=== PATIENT | female | born 1960 | race Caucasian/White ===

== ENCOUNTER 2019-09-15 09:02 | Emergency (ER) | payer BC, SELFPAY ==
[2019-09-15 09:05] VITALS: BP 118/70; PULSE 77; TEMP 36.7; O2SAT 99; BMI 24.9
--- NOTE | 2019-09-15 09:11 | ED_ITS ---
Entered by Susana Johnson, acting as scribe for Gal Mcdowell DO HPI - Abdominal Pain General: Chief Complaint: Abdominal Pain Stated Complaint: ABD PAIN Time Seen by Provider: 09/15/19 09:11 Source: patient and family Mode of arrival: ambulatory Limitations: no limitations History of Present Illness: HPI narrative: 59 yo female presents with abdomen pain. pt states this started 1 week ago. pt states she was seen at pcp clinic for the same symptoms and they found nothing wrong. pt has a hx of UTI's. pt states she has had diarrhea. pt's last bm was yesterday. pt denies any other symptoms at this time. MD elicited complaint: abdominal pain Onset (ago): week(s) (1 week ago) Location: RLQ and LLQ Severity: moderate Quality: cramping and fullness Exacerbating factors: other (diarrhea ) Relieving factors: nothing Associated Symptoms: Reports diarrhea; Denies chills, fever(s), hematochezia, hematuria and syncope Review of Systems General: Reports: 10 or more systems reviewed and unremarkable except in HPI and below Const: Denies: fever or chills Eyes: Denies: change in vision, blurry vision, blind spots or photophobia ENMT: Denies: throat pain, swelling of lips/tongue, oral sores/lesions, bad breath, ear pain, ear discharge, nasal discharge or nasal congestion Card: Denies: palpitations, syncope or shortness of breath when lying down Resp: Denies: change in phlegm color GI: Reports: abdominal pain and diarrhea; Denies: painful bowel movements or blood in stool : Denies: urinary dribbling, urinary incontinence, blood in urine or vaginal bleeding Musc: Denies: joint warmth Skin/Breast: Denies: rash or itching Neuro: Denies: headache or numbness in extremities Psych: Denies: depression Endo: Denies: excessive urination or excessive thirst PFSH ED PFSH: Social History Smoking and tobacco status: current every day smoker Physical Exam Const: COMMON NORMALS: no apparent distress, average body habitus, oriented x3, no limitations, healthy appearing, alert and well nourished HENMT: COMMON NORMALS: normocephalic, head/scalp atraumatic, hearing grossly normal bilaterally, external ears normal, EAC's normal, TM's normal bilaterally, external nose normal, nasal mucous membranes and turbinates normal, moist oral mucous membranes, oropharynx normal, dentition normal and gingiva normal HEAD & SCALP: normocephalic and atraumatic NOSE: external nose normal and nasal mucous membranes and turbinates normal EXTERNAL EAR: Yes external ears normal EXTERNAL AUDITORY CANAL: EAC's normal TYMPANIC MEMBRANE: TM's normal bilaterally Eye: COMMON NORMALS: PERRL, EOMs intact bilaterally, conjunctivae normal, no scleral icterus, no papilledema, normal visual hodge by confrontation and fundi normal bilaterally CONJUNCTIVA: Yes conjunctivae normal PUPIL: Yes PERRL DIRECT OPHTHALMOSCOPY: Yes no papilledema and Yes fundi normal bilaterally Neck/C-Spine: COMMON NORMALS: full ROM, no lymphadenopathy, supple, no meningeal signs, no JVD, thyroid normal and no carotid bruits THYROID: thyroid normal Chest: COMMONS NORMALS: inspection of chest normal and palpation of chest normal Resp: COMMON NORMALS: normal respiratory effort, no retractions, no use of accessory muscles, clear to auscultation bilaterally and percussion normal AUSCULTATION: clear to auscultation bilaterally PERCUSSION: percussion normal Cardio: COMMON NORMALS: no JVD, regular rate, regular rhythm, S1 normal heart sound, S2 normal heart sound, no gallops, no clicks, no murmurs, no rub and peripheral pulses 2+ throughout RATE: regular rate RHYTHM: regular rhythm HEART SOUNDS: S1 normal and S2 normal PERIPHERAL PULSES: pulses 2+ throughout : COMMON NORMALS: Yes no CVA tenderness and Yes external appearance normal BLADDER/KIDNEY EXAM: Yes no CVA tenderness Back/Pelvis: COMMON NORMALS: no CVA tenderness, thoracic and lumbar spine normal to inspection, no thoracic nor lumbar tenderness, thoraco-lumbar ROM normal and straight leg raise negative bilaterally Extremity: COMMON NORMALS: normal to inspection, full ROM, normal capillary refill, no joint enlargement, no clubbing, cyanosis or edema, no calf tenderness and no pedal edema Neuro: COMMON NORMALS: oriented x3 SENSORIUM/ORIENTATION: Yes alert MENINGEAL SIGNS: Yes no meningeal signs Skin: COMMON NORMALS: no rashes or lesions noted, no wounds, skin turgor normal, no jaundice, no petechiae and no mottling GENERAL SKIN EXAM: no rashes or lesions noted and turgor normal Course Vital Signs: Vital signs: Vital Signs Temperature 98.0 F 09/15/19 09:05 Pulse Rate 77 09/15/19 09:05 Blood Pressure 118/70 09/15/19 09:05 Pulse Oximetry 99 09/15/19 09:05 MDM - Abdominal Pain Lab Data: Labs: Lab Results 09/15/19 09/15/19 09/15/19 Range/Units 09:27 09:38 09:38 WBC 4.5 (4.0-10.0) 10^3/ uL RBC 4.47 (4.1-5.3) 10^6/u L Hgb 12.8 (11.5-15.3) g/dL Hct 41.5 (37.0-47.0) % MCV 92.8 (81-99) fL MCH 28.6 (28.0-34.0) pg MCHC 30.8 (30.0-36.0) g/dL RDW 12.1 (12.1-15.1) % Plt Count 196 (130-400) 10^3/c mm MPV 11.7 H (7.4-10.4) fL Neut % (Auto) 54.4 % Lymph % (Auto) 36.2 % [place] % (Auto) 7.7 % Eos % (Auto) 1.1 % Baso % (Auto) 0.4 % Neut # (Auto) 2.5 (1.8-7.7) 10^3/u L Lymph # (Auto) 1.6 (0.8-4.8) 10^3/u L [place] # (Auto) 0.4 (0.2-0.9) 10^3/u L Eos # (Auto) 0.1 (0.0-0.8) 10^3/u L Baso # (Auto) 0.0 (0.0-0.1) 10^3/u L Nucleated RBC % (a uto) 0 % Nucleated RBCs # 0.0 /100WBC Sodium 139 (136-145) mmol/L Potassium 3.8 (3.5-5.1) mmol/L Chloride 100 (98-107) mmol/L Carbon Dioxide 26 (22-29) mmol/L Anion Gap 16.8 (5-19) BUN 18 (6-20) mg/dL Creatinine 0.9 (0.5-0.9) mg/dL GFR Calculation 64.1 L (90-130) mL/min Glucose 105 (65-115) mg/dL Lactate (0.5-2.2) mmol/L Calcium 9.9 (8.5-10.5) mg/dL Total Bilirubin 0.3 (0.15-1.2) mg/dL AST 21 (0-32) U/L ALT 16 (0-33) U/L Alkaline Phosphata se 114 H (35-105) IU/L Total Protein 7.2 (6.6-8.7) g/dL Albumin 4.3 (3.5-5.2) g/dL Globulin 2.9 (1.3-4.6) g/dL Lipase 32 (13-60) U/L Urine Color Yellow (Yellow) Urine Appearance Clear (CLEAR) Urine pH 6.0 (5-7) Ur Specific Gravit y 1.020 (1.005-1.030) Urine Protein Neg (Negative) Urine Glucose (UA) Norm (Normal) Urine Ketones Negative (Negative) Urine Blood Neg (Negative) Urine Nitrate Negative (Negative) Urine Bilirubin Neg (NEGATIVE) Urine Urobilinogen 1 H (Negative) mg/dL Ur Leukocyte Senait ase Trace H (Negative) Urine RBC 5-10 H (0-2) /hpf Urine WBC 10-15 H (0-5) /hpf Ur Squamous Epith Cells 0-4 H (0-5) Urine Bacteria 1+ H (NONE) Urine Mucus 1+ 09/15/19 Range/Units 09:38 WBC (4.0-10.0) 10^3/ uL RBC (4.1-5.3) 10^6/u L Hgb (11.5-15.3) g/dL Hct (37.0-47.0) % MCV (81-99) fL MCH (28.0-34.0) pg MCHC (30.0-36.0) g/dL RDW (12.1-15.1) % Plt Count (130-400) 10^3/c mm MPV (7.4-10.4) fL Neut % (Auto) % Lymph % (Auto) % [place] % (Auto) % Eos % (Auto) % Baso % (Auto) % Neut # (Auto) (1.8-7.7) 10^3/u L Lymph # (Auto) (0.8-4.8) 10^3/u L [place] # (Auto) (0.2-0.9) 10^3/u L Eos # (Auto) (0.0-0.8) 10^3/u L Baso # (Auto) (0.0-0.1) 10^3/u L Nucleated RBC % (a uto) % Nucleated RBCs # /100WBC Sodium (136-145) mmol/L Potassium (3.5-5.1) mmol/L Chloride (98-107) mmol/L Carbon Dioxide (22-29) mmol/L Anion Gap (5-19) BUN (6-20) mg/dL Creatinine (0.5-0.9) mg/dL GFR Calculation (90-130) mL/min Glucose (65-115) mg/dL Lactate 1.8 (0.5-2.2) mmol/L Calcium (8.5-10.5) mg/dL Total Bilirubin (0.15-1.2) mg/dL AST (0-32) U/L ALT (0-33) U/L Alkaline Phosphata se (35-105) IU/L Total Protein (6.6-8.7) g/dL Albumin (3.5-5.2) g/dL Globulin (1.3-4.6) g/dL Lipase (13-60) U/L Urine Color (Yellow) Urine Appearance (CLEAR) Urine pH (5-7) Ur Specific Gravit y (1.005-1.030) Urine Protein (Negative) Urine Glucose (UA) (Normal) Urine Ketones (Negative) Urine Blood (Negative) Urine Nitrate (Negative) Urine Bilirubin (NEGATIVE) Urine Urobilinogen (Negative) mg/dL Ur Leukocyte Senait ase (Negative) Urine RBC (0-2) /hpf Urine WBC (0-5) /hpf Ur Squamous Epith Cells (0-5) Urine Bacteria (NONE) Urine Mucus Discharge Plan Discharge Patient Disposition: Home, Self-Care Clinical Impression: Abdominal pain Qualifiers: Abdominal location: generalized Qualified Code(s): R10.84 - Generalized abdominal pain Constipation Qualifiers: Constipation type: unspecified constipation type Qualified Code(s): K59.00 - Constipation, unspecified Condition: Stable Prescriptions: No Action omeprazole 20 mg capsule,delayed release(DR/EC) 20 mg PO DAILY RF: 0 Discharge Orders: Discharge Order (Routine); Ordered 09/15/19 Ordered By: Gal Mcdowell Referrals: Regina Ruiz, LOCAL AREA NETWORK ADMINISTRATOR-C [Family Provider] - Patient Instructions: Cholecystitis (ED), Abdominal Pain (ED) Coding Level of Care Code ED Patrol Driver for Chg Fwd Exam Comprehensive The documentation recorded by the Alex ortiz Bridget Annette, accurately reflects the service I personally performed and the decisions made by July lanier Donald P, DO Sep 15, 2019 09:02
--- NOTE | 2019-09-15 09:22 | CTR_ITS ---
PROCEDURE INFORMATION: Exam: CT Abdomen And Pelvis With Contrast Exam date and time: 09/15/2019 10:08 AM Age: 59 years old Clinical indication: Abdominal pain; Generalized; Prior surgery; Surgery date: 6+ months; Surgery type: Right ovary surgery; Additional info: Abd pain TECHNIQUE: Imaging protocol: Computed tomography of the abdomen and pelvis with intravenous contrast. Total DLP: 605.6 mGy-cm Radiation optimization: All CT scans at this facility use at least one of these dose optimization techniques: automated exposure control; mA and/or kV adjustment per patient size (includes targeted exams where dose is matched to clinical indication); or iterative reconstruction. Contrast material: OMNIPAQUE; Contrast volume: 95 ml; Contrast route: IV; COMPARISON: US Renal Kidney Structu* [id number] 12/10/2017 9:30 AM FINDINGS: Mediastinum: Small hiatal hernia. Liver: 2 cm cyst lateral segment left lobe of the liver Gallbladder and bile ducts: Normal. No calcified stones. No ductal dilation. Pancreas: Normal. No ductal dilation. Spleen: Normal. No splenomegaly. Adrenals: Normal. No mass. Kidneys and ureters: Normal. No hydronephrosis. Stomach and bowel: Large amount of stool throughout the large bowel. severe diverticulosis without evidence of diverticulitis. Appendix: The appendix is normal. Intraperitoneal space: No free fluid within the pelvis or within the dependent portions of the peritoneum. Vasculature: Calcification of the aorta. Lymph nodes: Unremarkable. No enlarged lymph nodes. Bladder: Unremarkable as visualized. Reproductive: Prior hysterectomy. Bones/joints: The osseous structures are unremarkable other than mild degenerative disk disease.. No fracture. Soft tissues: Unremarkable. Other findings: No acute intra-abdominal process. No inflammatory process. No obstruction. CT/CT abdomen pelvis w con* [id number] IMPRESSION: 1. No acute intra-abdominal process. No inflammatory process. No obstruction. 2. No free fluid within the pelvis or within the dependent portions of the peritoneum. 3. Large amount of stool throughout the large bowel. 4. Severe diverticulosis without evidence of diverticulitis. 5. The appendix is normal. Radiation Dose CTDIVOL = (mGy): DLP = 605.6 (mGy-cm)
[2019-09-15 09:44] LABS: Basophils % 0.4 %; Eosinophils # 0.1 10^3/uL (0.0-0.8); Eosinophils % 1.1 %; Hematocrit 41.5 % (37.0-47.0); Hemoglobin 12.8 g/dL (11.5-15.3); Lymphocytes # 1.6 10^3/uL (0.8-4.8); Lymphocytes % 36.2 %; Mean Corpuscular HGB Conc 30.8 g/dL (30.0-36.0); Mean Corpuscular Hemoglobin 28.6 pg (28.0-34.0); Mean Corpuscular Volume 92.8 fL (81-99); Mean Platelet Volume 11.7 fL (7.4-10.4); Monocytes # 0.4 10^3/uL (0.2-0.9); Monocytes % 7.7 %; Neutrophils # 2.5 10^3/uL (1.8-7.7); Neutrophils % 54.4 %; Nucleated Red Blood Cells % 0 %; Platelet Count 196 10^3/cmm (130-400); Red Blood Count 4.47 10^6/uL (4.1-5.3); Red Cell Distribution Width 12.1 % (12.1-15.1); White Blood Count 4.5 10^3/uL (4.0-10.0)
[2019-09-15 09:45] LABS: Add Urine Microscopic? YES; Bilirubin Urine Neg (NEGATIVE); Blood Urine Neg (Negative); Glucose Urine UA Norm (Normal); Ketones Urine Negative (Negative); Leukocyte Esterase Urine Trace (Negative); Nitrate Urine Negative (Negative); Protein Urine Neg (Negative); Urine Appearance Clear (CLEAR); Urine Color Yellow (Yellow); Urobilinogen Urine 1 mg/dL (Negative)
[2019-09-15 09:51] LABS: Add Urine Culture? Yes; Bacteria Urine 1+; Mucus Urine 1+; Squamous Epithelial Cell Urine 0-4 (0-5)
[2019-09-15] MEDS: sodium chloride 0.9% 1,000 ML 999 ML IV (09:56)
[2019-09-15 09:58] LABS: Alanine Aminotransferase 16 U/L (0-33); Albumin Level 4.3 g/dL (3.5-5.2); Alkaline Phosphatase 114 IU/L (35-105); Anion Gap 16.8 (5-19); Aspartate Amino Transferase 21 U/L (0-32); Blood Urea Nitrogen 18 mg/dL (6-20); Calcium 9.9 mg/dL (8.5-10.5); Carbon Dioxide 26 mmol/L (22-29); Chloride 100 mmol/L (98-107); Globulin 2.9 g/dL (1.3-4.6); Glomerular Filtration Rate 64.1 mL/min (90-130); Glucose 105 mg/dL (65-115); Lipase 32 U/L (13-60); Potassium 3.8 mmol/L (3.5-5.1); Sodium 139 mmol/L (136-145); Total Bilirubin 0.3 mg/dL (0.15-1.2); Total Protein 7.2 g/dL (6.6-8.7)
[2019-09-15 09:59] LABS: Lactate (Lactic Acid level) 1.8 mmol/L (0.5-2.2)
[2019-09-15] MEDS: iohexol 300 mg/mL 100 mL Btl IV (10:37)
[2019-09-15 12:24] VITALS: BP 116/79; PULSE 78; RESP 16; O2SAT 97
== END 2019-09-15 12:25 | disposition home or self-care (01) ==
PROVIDERS: Emergency Provider Family Medicine; Family Provider Nurse Practitioner
DX: R10.9 Unspecified abdominal pain (principal); K59.00 Constipation, unspecified; F17.200 Nicotine dependence, unspecified, uncomplicated
CPT/HCPCS: 36415; 74177; 80053; 81001; 83605; 83690; 85025; 87086; 96360; 99282; 99283; J7030; Q9967

== ENCOUNTER → 2020-08-04 10:59 | Outpatient (BNVA) | payer BC, SELFPAY | PROVIDERS: PCP Nurse Practitioner Family; Visit Provider Surgery | DX: Z20.822 Contact with and (suspected) exposure to COVID-19 (principal); Z11.52 Encounter for screening for COVID-19 | CPT/HCPCS: 87635 ==

== ENCOUNTER 2020-08-09 06:16 | Day surgery (SDC) | payer BC, SELFPAY ==
[2020-08-09] MEDS: sodium chloride 0.9% 1,000 ML 30 ML IV (06:45)
[2020-08-09 06:57] VITALS: BP 118/100; PULSE 86; RESP 18; TEMP 36.3; O2SAT 99
--- NOTE | 2020-08-09 07:40 | ANES.PREANE2 ---
Pre-Anesthetic Assessment Pre-Anesthetic Assessment: Height/Weight: Height 1.63 m Weight 58.967 kg Temp Pulse Resp BP Pulse Ox 97.3 F L 86 18 118/100 99 08/09/20 06:57 08/09/20 06:57 08/09/20 06:57 08/09/20 06:57 08/09/20 06:57 Preop Diagnosis: Rectal pain and hemorrhoids rectal pain and hemorrhoids Proposed Procedure: Operation Date: 08/09/20 07:55 Proposed Procedures p Colonoscopy [id number] Z12.11 K64.9(Not Applicable) - Bharat Sanchez MD s Exam Under Anesthesia(Not Applicable) - Bharat Sanchez MD s Hemorroidectomy(Not Applicable) - Bharat Sanchez MD Was Beta Wiley taken within 24 hours: N/A Last intake: Intake Last Liquid Date 08/08/20 Last Liquid Time 18:00 Last Solid Date 08/07/20 Social: Social History: No alcohol and No tobacco Exam: Pre-Anes Outpt Exam: alert, oriented x 3, clear to auscultation bilaterally and regular rate & rhythm Airway: Submandibular: WNL Cervical ROM: WNL MP: 2 Dentition: False History/ROS: No significant history except as noted Anesthetic Plan: ASA status: 1 Risk of > 500 ml blood loss (7ml/kg in children): No PFSH Anesthesia PFSH: Medical History Hemorrhoids Surgical History History of right oophorectomy Family History Denies family history of Diabetes Anesthesia complication Bleeding disorder Cancer Hypertension Social History Smoking and tobacco status: former smoker Alcohol intake: never Marital status: Bruna/Restorationism: None Financial difficulty paying for basics: Very Hard Data Anesthesia Cardiac Studies: No Data to Display
--- NOTE | 2020-08-09 08:49 | W.PM.OPSUD ---
Surgery/Procedure H&P Update DATE OF PROCEDURE: August 09, 2020 DATE H&P PERFORMED: 08/01/20 H&P UPDATE INFORMATION: I have reviewed H&P completed within last 30 days, I have examined patient prior to procedure and No changes to prior documentation PREOP DIAGNOSIS: Rectal pain and hemorrhoids rectal pain and hemorrhoids PRIMARY INDICATION FOR PROCEDURE: The same PLANNED PROCEDURE: Operation Date: 08/09/20 07:55 Proposed Procedures p Colonoscopy [id number] Z12.11 K64.9(Not Applicable) - Bharat Sanchez MD s Exam Under Anesthesia(Not Applicable) - Bharat Sanchez MD s Hemorroidectomy(Not Applicable) - Bharat Sanchez MD
--- NOTE | 2020-08-09 09:39 | PM.OP ---
Operative Report Date of procedure: August 09, 2020 Pre-op Diagnosis: Rectal pain and hemorrhoids rectal pain and hemorrhoids Post-op diagnosis: other (No evidence of internal or external hemorrhoids and presence of diverticulosis) Post-op Findings: Transverse colon,descending and sigmoid colon diverticulosis Procedure Done: Colonoscopy Specimens removed/disposition: None Surgeon: Bharat Sanchez Guide Visitor: certified composites techniciancarlos Thomas Circulating nurse Marleny Lopez Anesthesia: MAC (room service bellhop Smart) Estimated blood loss (mL): 0 Condition: stable Disposition: same day Brief History: This is a pleasant 59 years old female patient never had a colon copy before and complains of rectal pain as she was told at some point that she have hemorrhoids that needed to have surgery for. Plan of care; After thorough history and physical examination and reviewing the chart, plan to perform a colonoscopy in the operating room with examination under anesthesia and possible hemorrhoidectomy. I discussed with the patient in details the risks,benefits,alternatives and indications.The risk of aspiration, bleeding, soft tissue injury, perforation of the colon and other potential concomitant complications were explained to the patient in details.The patient understood this well and did agree to proceed. Rationale was carefully and clearly discussed with the patient.Appropriate informed consent have been reviewed and signed All questions have been answered and all concerns have been addressed to patient's satisfaction. Verbal and written Instructions were given to the patient for colonoscopy prep. Procedure: Patient was identified in the holding area, was taken to the OR placed first in supine position,time-out was done verifying the patient's name, date of , and procedure, all were in agreement. IV propofol was infused by the anesthesia provider, patient was then placed in left lateral position. Perianal examination showed normal findings,Following that a digital rectal examination was done showed no masses or blood or fibrosis, the colonoscope was then introduced via the anus under direct visualization, all the way to the cecum, prep of the colon was appropriate, there were no polyps identified or masses yet diverticular disease distal transverse,descending and sigmoid colon. The scope was then retrieved back ,time for withdrawal exceeded 7 minutes, gas was deflated on the way out. The Anal segment was reexamined and showed no evidence of hemorrhoids. Patient was repositioned to supine position,patient tolerated the procedure well Patient was taken to the recovery area in stable condition I was present for the whole entire procedure Recommendation to repeat colonoscopy in 10 years for screening purposes.
[2020-08-09 09:42] VITALS: BP 130/75; PULSE 77; RESP 16; TEMP 36.3; O2SAT 100
[2020-08-09 10:01] VITALS: BP 126/80; PULSE 74; RESP 18; O2SAT 100
--- NOTE | 2020-08-09 13:35 | ANE.PACU2 ---
Inpatient post-anesthesia follow up: Airway intact: Yes Vital signs: Temperature 97.3 F Pulse Rate 74 Respiratory Rate 18 Blood Pressure 126/80 Pulse Oximetry 100 Oxygen Delivery Me thod Room Air Oxygen Flow Rate Fraction of Inspir ed Oxygen Hydration adequate: Yes Nausea and vomiting: No Pain level: 1 Mental status: Baseline
== END 2020-08-09 10:20 | disposition home or self-care (01) ==
PROVIDERS: PCP Nurse Practitioner Family; Visit Provider Surgery
PROC: 0DJD8ZZ Inspection of Lower Intestinal Tract, Via Natural or Artificial Opening Endoscopic (ICD-10-PCS; CPT 45378; principal; 2020-08-09 07:55)
DX: K62.89 Other specified diseases of anus and rectum (principal); K57.30 Diverticulosis of large intestine without perforation or abscess without bleeding; Z87.891 Personal history of nicotine dependence
CPT/HCPCS: 12345; 45378; J2704; J7030

== ENCOUNTER 2022-07-19 09:18 | Outpatient (CLI) | payer OTHER, SELFPAY ==
--- NOTE | 2022-07-19 11:20 | MM_ITS ---
WS: [id number] Bilateral screening 3D tomosynthesis digital mammogram, 07/19/2022 Clinical Data: SCREENING Comparison: None. Findings: The breast parenchymal pattern shows fibroglandular tissue. No spiculated masses or clustered calcifi cations are seen. There are no secondary signs of carcinoma. MM/[place] [id number] Impression: 1. Negative bilateral mammogram unchanged. 2. Recommend annual screening mammograms. BIRADS: 1-Negative FOLLOW UP: 1 Year Follow-up The CAD tool checker was used.
== END 2022-07-19 09:19 | disposition home or self-care (01) ==
PROVIDERS: PCP Nurse Practitioner Family; Visit Provider Nurse Practitioner Family
DX: Z12.31 Encounter for screening mammogram for malignant neoplasm of breast (principal)
CPT/HCPCS: 77063; 77067

== ENCOUNTER 2022-11-02 21:44 | Emergency (ER) | payer SELFPAY ==
[2022-11-02 22:02] VITALS: BP 122/79; PULSE 80; RESP 16; TEMP 36.6; O2SAT 97
--- NOTE | 2022-11-02 22:14 | XRR_ITS ---
PROCEDURE INFORMATION: Exam: XR Left Clavicle, Complete Exam date and time: 11/02/2022 10:23 PM Age: 62 years old Clinical indication: Pain; Other: Clavicle; Additional info: Fall TECHNIQUE: Imaging protocol: Radiologic exam of the left clavicle. Complete exam. Views: Any number of views. COMPARISON: No relevant prior studies available. FINDINGS: Bones/joints: Mild arthritis left AC joint. No acute fracture or dislocation. Anatomic alignment. Soft tissues: Normal. XR/[place] [id number] IMPRESSION: Degenerative changes. No acute injury.
[2022-11-03 00:21] VITALS: BP 129/73; PULSE 69; RESP 16; O2SAT 98
--- NOTE | 2022-11-03 00:33 | XRR_ITS ---
PROCEDURE INFORMATION: Exam: XR Left Humerus Exam date and time: 11/03/2022 12:42 AM Age: 62 years old Clinical indication: Injury or trauma; Fall; Blunt trauma (contusions or hematomas); Arm, upper; Left; Additional info: Fall, pain, clavicle XR neg but does not show humoral neck and lower TECHNIQUE: Imaging protocol: Radiologic exam of the left humerus. Views: 2 or more views. COMPARISON: CR (CHEST, ) 11/02/2022 10:23 PM FINDINGS: Bones/joints: Normal. Soft tissues: Normal. XR/[place] [id number] IMPRESSION: No acute findings.
--- NOTE | 2022-11-03 00:37 | W.ED.FALL ---
HPI - Fall General: Chief Complaint: Fall Stated Complaint: fell, collar bone and left arm injury Time Seen by Provider: 11/03/22 00:12 Source: patient Mode of arrival: ambulatory Limitations: no limitations History of Present Illness: Patient presents emergency department today accompanied by significant other for evaluation treatment of left shoulder injury. Patient states that Saturday evening she had been sitting down at her desk. When she got up her leg was asleep causing her to fall forward. Patient states she fell onto the carpeted floor on the side of her left shoulder. She thought at first it was just a sprain so she was taking Tylenol but, has not noticed improvement in her left shoulder pain or improvement in her range of motion. Patient complains of pain across her left clavicle but also to the proximal portion of her left upper arm. Patient has very little range of motion but denies any tingling or numbness into her hand. She has some tightness of her neck but denies any pain with range of motion. She did not hit her head when she fell. Review of Systems General: Reports: 10 or more systems reviewed and unremarkable except in HPI and below PFSH ED PFSH: Medical History Hemorrhoids Surgical History History of right oophorectomy Family History Denies family history of Diabetes Anesthesia complication Bleeding disorder Cancer Hypertension Social History Smoking and tobacco status: former smoker Alcohol intake: never Substance/Drug Use: never Marital status: Bruna/Mormonism: None Financial difficulty paying for basics: Very Hard Physical Exam Const: COMMON NORMALS: no acute distress, patient oriented x3 and alert HENMT: COMMON NORMALS: normocephalic, atraumatic and hearing grossly normal bilaterally HEAD & SCALP: normocephalic and atraumatic Eye: COMMON NORMALS: Equal, round and reactive pupils present, EOMs intact bilaterally and conjunctivae normal CONJUNCTIVA: Yes conjunctivae normal PUPIL: Yes Equal, round and reactive pupils present Neck/C-Spine: COMMON NORMALS: full ROM and no JVD Lymph: LYMPHATIC: no lymphadenopathy noted Resp: COMMON NORMALS: normal respiratory effort, No retractions and No use of accessory muscles Cardio: COMMON NORMALS: no JVD and regular rate RATE: regular rate Extremity: NARRATIVE EXTREMITY EXAM: Patient is nontender palpation to her left elbow. She has full flexion extension of the elbow without pain at the elbow but some discomfort with flexion radiating up into her upper arm. Patient is tender starting at the mid clavicle extending laterally. Patient has some anterior left shoulder discomfort but, pain is primarily felt in the back and along the lateral side. Patient has approximately 10 to 20 degrees of left shoulder abduction and almost no ability to try and bring her left arm behind her back. She is able to bring her left arm forward approximately 40 degrees. Neuro: COMMON NORMALS: patient oriented x3 SENSORIUM/ORIENTATION: Yes alert Psych: COMMON NORMALS: mental status grossly normal, Normal thought process present, cooperative and normal affect THOUGHT PROCESS: Normal thought process present Skin: COMMON NORMALS: no rashes or lesions noted and turgor normal GENERAL SKIN EXAM: no rashes or lesions noted and turgor normal Course Vital Signs: Vital signs: Vital Signs Temperature 97.8 F 11/02/22 22:02 Pulse Rate 69 11/03/22 00:21 Respiratory Rate 16 11/03/22 00:21 Blood Pressure 129/73 11/03/22 00:21 Pulse Oximetry 98 11/03/22 00:21 Oxygen Delivery Me thod Room Air 11/03/22 00:21 MDM - Fall Medical Decision Making Patient presented to the emergency department today for evaluation treatment of pain to her left clavicle and left upper arm after a fall. X-rays were read as negative however, patient has significant decreased range of motion on her physical examination consistent with concerns for rotator cuff injury. Discussed follow-up with orthopedics for second opinion and second evaluation as she may require some physical therapy or further intervention. We discussed use of a sling and patient states she has 1 at home already. Patient has a history of stomach ulcers and avoids NSAIDs so, patient will use Tylenol, ice, and I provided her a short course of muscle relaxer and topical Voltaren. Informational handout about rotator cuff injuries and shoulder injuries provided for her reference at home. Differential Diagnosis Likely dislocation of shoulder region (Humeral fracture, AC joint separation, clavicular fracture, rotator cuff injury) Lab Data Radiology Impressions Clavicle X-Ray 11/02/22 22:14 IMPRESSION: Degenerative changes. No acute injury. Humerus X-Ray 11/03/22 00:33 IMPRESSION: No acute findings. Discharge Plan Discharge Patient Disposition: Home Clinical Impression: Shoulder pain, left Condition: Stable Prescriptions: New tizanidine 4 mg capsule 4 mg PO Q8H PRN (Reason: muscle spasticity) Qty: 20 0RF Voltaren Arthritis Pain 1 % gel 4 g topical QID Qty: 100 0RF Rx Instructions: apply to left shoulder every 6 hrs Discharge Orders: Discharge ED (Routine); Ordered 11/03/22 Ordered By: Maggie Barlow Referrals: Mami Desai FNP [Primary Care Provider] - Discharge Diet: Usual diet Discharge Activity: Limit activity as instructed Patient Instructions: Rotator Cuff Injury (ED), Shoulder Pain (ED) Activity Restrictions/Additional Instructions: X-rays today show no signs of any acute fractures. You do have some degenerative arthritic changes incidentally found on your x-ray between the end of your clavicle and your acromion. However, based on the limits of range of motion on your physical examination I am suspicious of a rotator cuff injury. We will treat you for pain-avoiding NSAIDs due to your stomach ulcer history, and recommend you use the sling you have at home to help support your arm throughout the day. You can apply ice for 15 to 20 minutes, multiple times throughout the day in addition to taking your Tylenol as well. I have requested a follow-up appoint with orthopedics on your behalf as well to further evaluate for connective tissue injury. Coding Level of Care Code ED Criminology Professor for P[facility]ajwa
[2022-11-03] MEDS: ketorolac 30 mg/mL INJ IM (01:38)
[2022-11-03] MEDS: tizanidine 4 mg Tablet PO (01:38)
[2022-11-03 01:44] VITALS: BP 129/73; PULSE 69; RESP 16; TEMP 36.6; O2SAT 98
--- NOTE | 2022-11-05 09:42 | DCPLANNER ---
Addendum entered by Shey Moseley 11/06/22 13:53: talent acquisition manager received the following message from the ortho clinic regarding follow up appointment: attempt made to contact patient - number states not available and no vm option - will mail letter to call our clinic to schedule - she can see dr clay next week or aly sheehan Original Note: talent acquisition manager had message to schedule a follow up appointment for patient with ortho. talent acquisition manager sent patients information to the front office staff at ortho. Patients information will be printed and reviewed. Clinic will call patient with appointment information.
== END 2022-11-03 02:01 | disposition home or self-care (01) ==
PROVIDERS: Emergency Provider Physician Assistant; PCP Nurse Practitioner Family
DX: M25.512 Pain in left shoulder (principal); Z87.891 Personal history of nicotine dependence
CPT/HCPCS: 73000; 73060; 96372; 99284; J1885

== ENCOUNTER 2024-12-30 09:51 | Outpatient (CLI) | payer MEDICAID, SELFPAY ==
--- NOTE | 2024-12-30 09:40 | MM_ITS ---
WS: [id number] BILATERAL SCREENING DIGITAL TOMOSYNTHESIS MAMMOGRAM WITH CAD HISTORY: SCREENING COMPARISON: 07/19/2022 Bilateral CC and MLO views with tomosynthesis and synthetic mammography submitted. Computer aided detection analyzed. Breast composition: There are scattered areas of fibroglandular density. No suspicious masses, microcalcifications or architectural distortion. MM/MM scr BI tomosynthesis [id number] IMPRESSION: BI-RADS: 2 - Benign. FOLLOW UP: 1 Year Follow-up
== END 2024-12-30 09:52 | disposition home or self-care (01) ==
PROVIDERS: PCP Nurse Practitioner Family; Visit Provider Nurse Practitioner Family
DX: Z12.31 Encounter for screening mammogram for malignant neoplasm of breast (principal)
CPT/HCPCS: 77063; 77067